=== PATIENT | male | born 1985 | race Caucasian/White ===

== ENCOUNTER 2019-12-23 22:44 | Emergency (ER) | payer MEDICAID, SELFPAY ==
[2019-12-23 22:45] VITALS: BP 149/92; PULSE 102; RESP 15; TEMP 37.4; O2SAT 97; BMI 33.5
[2019-12-23 23:34] VITALS: O2SAT 96
--- NOTE | 2019-12-23 23:59 | RAD_ITS ---
STUDY: X-RAY CHEST REASON FOR EXAM: Male, 34 years old. COUGH AND SOB FOR 5 DAYS. TECHNIQUE: AP and lateral views of the chest. COMPARISON: None. FINDINGS: The lungs are clear and expanded. There is no demonstrated pleural abnormality. Normal size heart. Normal mediastinum and loi. Normal visualized pulmonary arteries. Normal visualized aortic arch and descending thoracic aorta. Normal visualized thoracic spine. Normal visualized ribs, clavicles, and shoulders. There is no demonstrated abnormality of the visualized soft tissue structures of the upper abdomen. RAD/Chest PA and Lateral IMPRESSION: Normal x-ray examination of the chest. Electronically Signed: Keila Page, at 0:55 EDT Tel , Service support ,
[2019-12-24] MEDS: predniSONE 20 MG Tablet 40 MG PO (00:15)
[2019-12-24] MEDS: Ipratropium/Albuterol Sulfate 3 ML AMPUL.NEB INHALATION (00:40)
[2019-12-24 00:42] VITALS: PULSE 99; RESP 18
--- NOTE | 2019-12-24 01:12 | ED.VISSUMM ---
- ER Visit Summary Date of Service: 12/24/19 Chief Complaint: Cough and shortness of breath History of Present Illness: The patient is a 34 M with no primary care physician. Reports he has a cough began 5 days ago. Is productive yellow sputum without blood. He denies any sick contacts. States that he smokes a pack per day. He is had severe shortness of breath and has been wheezing. He does not have an inhaler currently, but is used 1 in the past. He denies any fever or chills. He reports he has a sore throat from coughing only. Physical Examination: Vitals: Stable. Afebrile. General: Well-nourished and well-developed. Head: Normocephalic atraumatic. Neck: Supple, no lymphadenopathy. No JVD. Nontender. Cardiovascular: Regular rate and rhythm. No murmurs. Respiratory: No respiratory distress. Mild wheezing bilaterally with decreased air movement. Abdominal: Soft, nontender, nondistended, normal bowel sounds. No guarding, rebound, or peritoneal signs. Back: Nontender. Extremities: Nontender, no edema. Skin: Normal color, no rash. Neurologic: Alert and oriented ?3. Cranial nerves II through XII are intact. Normal strength and sensation. Psych: Normal affect. Test Results: Clinical Impression(s) from Imaging Studies Chest X-Ray 12/23/19 23:59 IMPRESSION: Normal x-ray examination of the chest. Electronically Signed: Keila Page, at 0:55 EDT Tel , Service support , Emergency Department Course and Treatment: Patient refused a COVID-19 test. He was given albuterol Atrovent aerosol with significant relief. He was given Zithromax and prednisone p.o. Treatment Plan: Patient will be discharged and treated as a COPD exacerbation. He is given a prescription for an albuterol MDI, Zithromax, and prednisone. Follow-up Dr. Ramos in 3 to 5 days if not improving. Return to the emergency department for any worsening symptoms. Disposition: To home in improved and stable condition. Impression: 1. URI with bronchospasm. 2. Tobacco abuse. This note was generated with [employer] software. It may contain incorrect words, spelling, and punctuation that were not noted in review of the chart prior to signing ED Disposition - Plan for ED Patient: Disposition: Home or Assisted Living Instructions: ED Upper Resp Infec Abx Tx Prescriptions: Prednisone [Deltasone] 40 mg PO DAILY #10 tab Prescription Printed Albuterol Inhaler [Ventolin Hfa] 2 puff INHALATION Q4H PRN PRN #1 inhaler PRN Reason: Wheezing Prescription Printed Azithromycin [Zithromax] 250 mg PO DAILY #4 tab Prescription Printed Referrals: Trace Ramos MD [STAFF PHYSICIAN] - 1 Week if not improving
[2019-12-24] MEDS: Azithromycin 250 MG Tablet 500 MG PO (01:43)
[2019-12-24 01:45] VITALS: BP 138/90; PULSE 89; RESP 17; O2SAT 98
== END 2019-12-24 01:45 | disposition home or self-care (01) ==
LOC: ED 12-24 00:15
PROVIDERS: Emergency Provider Emergency Medicine
DX: J06.9 Acute upper respiratory infection, unspecified (principal); J98.01 Acute bronchospasm; F17.200 Nicotine dependence, unspecified, uncomplicated
CPT/HCPCS: 71046; 94640; 99283

== ENCOUNTER 2020-03-24 13:24 | Emergency (ER) | payer MEDICAID, SELFPAY ==
[2020-03-24 13:25] VITALS: BP 153/108; PULSE 118; RESP 19; TEMP 36.7; O2SAT 96; BMI 32.1
--- NOTE | 2020-03-24 14:24 | ED.DCSUM_ITS ---
- ER Visit Summary Date of Service: 03/24/20 Chief Complaint: Lightheadedness History of Present Illness: The patient is a 34 M who presents with lightheadedness that has been constant for the past 11 days. Patient states it is gradually gotten worse. Patient states he feels dizzy and lightheaded like he might pass out. Patient states it is worse with standing. Patient denies any fevers or chills. Patient admits to some intermittent shortness of breath occasionally. Patient denies any cough. Patient thinks he may have Covid but does not want to have a nasal swab done to test for Covid. Physical Examination: Vital signs are stable. Patient is afebrile. Patient is in no acute distress. Oral mucosa is pink and moist. Neck is supple. Trachea is midline. There is no JVD noted. Heart was regular rate and rhythm. Lungs are clear and equal bilaterally. Abdomen is soft. Bowel sounds are normal. There is no tenderness. There is no rebound or guarding noted. Skin is warm dry. Cranial nerves II through XII are intact. There are no focal motor or sensory deficits noted. Extremities are intact. There is no calf tenderness or edema. Emergency Department Course and Treatment: Patient was advised that the nasal swab is the only test for COVID-19. Patient was advised that he does have several symptoms of COVID-19. Patient was advised to quarantine himself. Patient was advised that since it has been 11 days since his symptoms began his symptoms may improve shortly. Patient was instructed return if worse in any way. Patient understood and was agreeable with the plan. All questions were answered. Disposition: Discharge home Impression: Viral illness This note was generated with [employer] dictation software. It may contain incorrect words, spelling, and punctuation that were not noted in review of the chart prior to signing ED Disposition - Plan for ED Patient: Disposition: Home or Assisted Living Diagnosis: Viral illness Instructions: ED Viral Syndrome Referrals: Care Physician,No Primary [Primary Care Provider] - 3-5 Days
[2020-03-24 14:27] VITALS: BP 152/125; PULSE 103; RESP 18; TEMP 36.7; O2SAT 95; O2SAT 98
[2020-03-24 14:30] VITALS: BP 122/90
== END 2020-03-24 14:36 | disposition home or self-care (01) ==
PROVIDERS: Emergency Provider Emergency Medicine
DX: B34.9 Viral infection, unspecified (principal); R42 Dizziness and giddiness; R06.00 Dyspnea, unspecified; F17.200 Nicotine dependence, unspecified, uncomplicated
CPT/HCPCS: 99282

== ENCOUNTER 2021-04-09 09:40 | Emergency (ER) | payer MEDICAID, SELFPAY ==
[2021-04-09 09:42] VITALS: BP 151/94; PULSE 65; RESP 16; TEMP 36.6; O2SAT 100; BMI 34.1
--- NOTE | 2021-04-09 10:02 | EKG12_ITS ---
Test Reason : CP Blood Pressure : / mmHG Vent. Rate : 087 BPM Atrial Rate : 087 BPM P-R Int : 124 ms QRS Dur : 088 ms QT Int : 384 ms P-R-T Axes : 077 069 038 degrees QTc Int : 462 ms Normal sinus rhythm with sinus arrhythmia Normal ECG Confirmed by LISE VIZCAINO, LIZZIE ([id number]), online editor RAVINDER BLACKWOOD ([id number]) on 04/11/2021 11:36:04 AM Referred By: DIANE Confirmed By:LIZZIE LEZAMA MD
--- NOTE | 2021-04-09 10:03 | ED.VIS.CHEST ---
HPI History of Present Illness Chief Complaint: Chest Pain Narrative Narrative: Patient presenting for evaluation secondary to chest pain. Patient reports that he was seated this morning, doing his normal morning routine which involves drinking a cup of coffee smoking cigarettes and surfing the Internet. He reports that he had a sudden onset of very severe sharp chest pain. He states that it was associated with feelings diaphoresis. States that the pain was severe enough that it caused him to roll around on the ground, and began to start to come in waves. States that rolling around on the ground seem to help but it lasted about 15 to 20 minutes and then spontaneously resolved. Patient states that he is never really had any prior similar episodes in the past. Patient does report that he smokes marijuana, but does not use a bong or vape. Last time he did it was last night. Patient denies any underlying history of heart disease or any risk factors of such. He also denies any underlying risk factors for pulmonary embolism. No recent illness such as fever cough nausea or vomiting. Pain has since resolved and the patient states that he feels completely back to baseline. Review of systems otherwise negative. [facility] Medical History Irregular heart beat Home Medications NK 03/24/20 [History Last Taken Unknown] Allergy/AdvReac Type Severity Reaction Status Date / Time No Known Allergies Allergy Verified 03/24/20 13:24 Surgical History no surgical history Social History Smoking Status: Current every day smoker tobacco type: cigarettes ROS ROS ED Constitutional Constitutional ED: Denies fever(s) Eyes Eyes: Denies change in vision ENT ENT ED: Denies rhinorrhea or sore throat Cardiovascular Cardiovascular: Reports as per HPI Respiratory/Chest Respiratory/Chest: Denies cough, dyspnea or dyspnea on exertion Gastrointestinal Gastrointestinal: Denies abdominal pain, nausea or vomiting Genitourinary Genitourinary ED: Denies dysuria Musculoskeletal Musculoskeletal: Denies myalgias or neck pain Integumentary Reports other Details: Diaphoresis Neurologic Neurologic: Denies headache(s), paresthesias or weakness Psychiatric Psychiatric: Denies depression Endocrine Endocrinology: Denies polydipsia or polyuria Hematologic/Lymphatic Hematologic/Lymphatic: Denies easy bleeding or easy bruising Allergic/Immunologic Allergic/Immunologic ED: Denies urticaria EXAM Physical Exam Const Vital Signs: 04/09/21 09:42 04/09/21 09:47 04/09/21 10:02 Temperature 97.9 F Temperature Source Temporal Pulse Rate 65 Respiratory Rate 16 Respiratory Effort Normal Non-Labored Blood Pressure 151/94 H Blood Pressure Mean 113 Pulse Ox 100 Oxygen Delivery Method Room Air Room Air Positive well nourished and well developed General Appearance ED: well developed and NAD HEENT Reports moist mucous membranes normocephalic and atraumatic Eyes EOMs intact bilaterally Neck no lymphadenopathy, supple and no JVD Chest Wall inspection of chest normal and palpation of chest normal Chest Narrative: No evidence of vesicular rash Resp normal respiratory effort and clear to auscultation bilaterally Auscultation: Negative for rales, rhonchi or wheezes Cardio regular rate, regular rhythm, S1 normal heart sound, S2 normal heart sound and no murmurs Peripheral Pulses: radial pulses present and posterior tibial pulses present GI normal to inspection, nondistended, normoactive bowel sounds, soft to palpation and non-tender Extremity normal to inspection Extremity Narrative: Calves are supple no palpable cord General Extremety ED: Negative for edema or tenderness General Extremity: Negative for edema Neuro oriented x3 and no sensory deficits noted Sensorium / Orientation: awake and alert Psych mental status grossly normal Skin no rashes or lesions noted MDM MDM MDM Narrative Medical decision making narrative: Patient presenting for evaluation secondary to chest pain. EKG was found to be unremarkable. Chest x-ray by my personal review as well as radiology is found to be negative. CBC demonstrates some hemoconcentration likely consistent with the patient's smoking history, chemistry was unremarkable high-sensitivity troponin was noted to be negative. Heart score is a maximum 1, patient is chest pain-free, I do not believe that he requires further work-up or treatment. Patient is capital PE RC negative no indication for work-up for pulmonary embolism. Patient was given reassurance his pain seems likely to have been referred GI type pain. Patient was discharged in stable condition. Lab Data Labs: Laboratory Results - last 24 hr 04/09/21 04/09/21 09:50 09:50 WBC 9.8 RBC 5.80 Hgb 18.1 H* Hct 52.3 MCV 90.2 MCH 31.2 MCHC 34.6 RDW Std Deviation 41.6 RDW Coeff of Chirag 12.6 Plt Count 329 MPV 9.0 Immature Gran % (Auto) 0.200 Neut % (Auto) 53.5 Lymph % (Auto) 31.2 [place] % (Auto) 10.6 H Eos % (Auto) 3.9 Baso % (Auto) 0.6 Absolute Neuts (auto) 5.2 Absolute Lymphs (auto) 3.05 Nucleated RBC % 0 Diff Path Review May foll Sodium 139 Potassium 4.0 Chloride 107 Carbon Dioxide 27.0 Anion Gap 5 BUN 13 Creatinine 1.17 Estim Creat Clear Calc 90.99 Est GFR (MDRD) Af Amer 91 Est GFR (MDRD) Non-Af 75 BUN/Creatinine Ratio 11.1 Glucose 112 H Calcium 9.4 Troponin I High Sens < 3 L Radiography Diagnostic Testing: Clinical Impression(s) from Imaging Studies Chest X-Ray 04/09/21 10:25 IMPRESSION: Normal x-ray examination of the chest. Electronically Signed: Wilber Fonseca MD at 10:45 EST , Service support , EKG Initial EKG: Attestation: I personally reviewed and interpreted this EKG as follows: (Sinus rhythm of 87 with some sinus arrhythmia, isoelectric ST segments normal T waves no evidence of acute ischemia or arrhythmia normal intervals) Discharge Plan Triage Chief Complaint: Chest Pain ED Provider: Dandy Villanueva Dx/Rx/DC Orders Clinical Impression: Chest pain Instructions: ED Chest Pain, Noncardiac Prescriptions: No Action NK RF: 0 Primary Care Provider: Care Physician,No Primary Referrals: Care Physician,No Primary [Primary Care Provider] - Activity Restrictions/Additional Instructions: Follow-up with your primary care physician as needed Disposition Disposition: Home, Self Care
[2021-04-09 10:19] LABS: Absolute Lymphocyte Count 3.05 X10^3/uL (0.83-4.51); Absolute Neutrophil Count 5.2 X10^3/uL (2.0-7.7); Basophil# 0.06 X10^3/uL; Basophil% 0.6 % (0-1); Eosinophil# 0.38 X10^3/uL; Eosinophils% 3.9 % (0-5); Hematocrit 52.3 % (40-54); Lymphocyte # 3.05 X10^3/ul (0.83-4.51); Lymphocyte % 31.2 % (19-41); Mean Corp Hgb Conc 34.6 g/dL (32-36); Mean Corpuscular Hgb 31.2 pg (27.0-32.0); Mean Corpuscular Volume 90.2 fL (80-94); Monocyte# 1.04 X10^3/uL; Monocyte% 10.6 % (0-10); NRBC Flagged by Analyzer 0 % (0-5); Neutrophil # 5.22 X10^3/uL (2.7-7.7); Neutrophil % 53.5 % (47-70); Platelet Count 329 K/mm3 (150-450); RBC Distribution Width CV 12.6 % (11.6-14.6); RBC Distribution Width SD 41.6 fl (35.1-43.9); White Blood Count 9.8 K/mm3 (4.4-11.0)
--- NOTE | 2021-04-09 10:25 | RAD_ITS ---
STUDY: X-RAY CHEST REASON FOR EXAM: Male, 35 years old. Chest pain TECHNIQUE: PA and lateral views of the chest. COMPARISON: Comparison is made with prior study dated 12/24/2019. FINDINGS: EKG electrodes are seen. The lungs are clear and expanded. There is no demonstrated pleural abnormality. Normal size heart. Normal mediastinum and loi. Normal visualized pulmonary arteries. Normal visualized aortic arch and descending thoracic aorta. Normal visualized thoracic spine. Normal visualized ribs, clavicles, and shoulders. There is no demonstrated abnormality of the visualized soft tissue structures of the upper abdomen. RAD/Chest PA and Lateral IMPRESSION: Normal x-ray examination of the chest. Electronically Signed: Wilber Fonseca MD at 10:45 EST , Service support ,
[2021-04-09 10:27] LABS: Hemoglobin 18.1 g/dL (13.0-16.5)
[2021-04-09 10:42] LABS: Anion Gap 5 (5-15); BUN 13 mg/dL (7-18); BUN/Creat Ratio 11.1 RATIO (10-20); Calcium,Total 9.4 mg/dL (8.5-10.1); Chloride 107 mmol/L (98-107); Creatinine, Serum 1.17 mg/dL (0.70-1.30); EST Glomerular Filtration Rate 75 mL/min (>60); Est Glom Filt Rate - Afr Amer 91 mL/min (>60); Estimated Creatinine Clearance 90.99 ml/min; Glucose 112 mg/dL (74-106); Sodium Level 139 mmol/L (136-145); Troponin-I HS < 3 pg/mL (3.0-78.0)
--- NOTE | 2021-04-09 10:59 | ED.RN ---
PT PULLED IV OUT. BLOOD ALL OVER FLOOR. PT LAUGHING
[2021-04-09 11:33] VITALS: BP 115/79; PULSE 84; RESP 16; O2SAT 99
--- NOTE | 2021-04-09 11:34 | ED.RN ---
THIS NURSE REVIEWED D/C INSTRUCTIONS WITH PT. PT VERBALIZED UNDERSTANDING OF INSTRUCTIONS. PT D/C OWN IV. PT DENIES FURTHER NEEDS OR QUESTIONS AT THIS TIME. PT AMBULATES FROM ROOM ON OWN WITHOUT ASSISTANCE FROM STAFF
[2021-04-10 13:48] LABS: Pathologist Review Reviewed
== END 2021-04-09 11:35 | disposition home or self-care (01) ==
PROVIDERS: Emergency Provider Emergency Medicine
DX: R07.9 Chest pain, unspecified (principal); R61 Generalized hyperhidrosis; F17.210 Nicotine dependence, cigarettes, uncomplicated; F12.90 Cannabis use, unspecified, uncomplicated
CPT/HCPCS: 71046; 80048; 84484; 85025; 93005; 99284; A4216

== ENCOUNTER 2021-04-18 17:24 | Emergency (ER) | payer MEDICAID, SELFPAY ==
[2021-04-18 17:25] VITALS: BP 160/72; PULSE 109; RESP 16; TEMP 36.7; O2SAT 95; BMI 33.0
--- NOTE | 2021-04-18 18:17 | EDS_ITS ---
HPI History of Present Illness Chief Complaint: Constipation Informant: patient Onset/Context/Timing Onset: Days Context: Gradual Onset Current Severity: Mild Maximum Severity: Moderate Narrative Narrative: Patient presents with lower abdominal pain and constipation for the past 3 days. Patient states he is never had problems with constipation previously and usually goes every day. He tried an enema yesterday along with some oral laxative pills. Last night he became dizzy. He thought it might be secondary to the medication but did note it was 12 hours after he had taken it. He went to urgent care today where his temperature was 100 and his heart rate was elevated. He was sent to the emergency room. No known history of diverticu litis. [facility] Medical History (Updated 04/18/21 @ 21:[address] Riri Echevarria MD) Irregular heart beat Home Medications amoxicillin-pot clavulanate [Augmentin] 1 tab PO BID #20 tab 04/18/21 [Rx Last Taken Unknown] Allergy/AdvReac Type Severity Reaction Status Date / Time guaifenesin [From Robitussin] Allergy Hives Verified 04/18/21 18:22 Surgical History (Updated 04/18/21 @ 18:[address] Riri Echevarria MD) History of ankle surgery Social History Smoking Status: Current every day smoker tobacco type: cigarettes ROS ROS ED Constitutional Constitutional ED: Reports fever(s); Denies chills Eyes Eyes: Denies change in vision ENT ENT ED: Denies sore throat Cardiovascular Cardiovascular: Denies chest pain Respiratory/Chest Respiratory/Chest: Denies cough or dyspnea Gastrointestinal Gastrointestinal: Reports abdominal pain and constipation; Denies diarrhea, nausea or vomiting Genitourinary Genitourinary ED: Denies dysuria Musculoskeletal Musculoskeletal: Denies back pain or neck pain Integumentary Denies rash Neurologic Neurologic: Denies headache(s) or weakness Allergic/Immunologic Allergic/Immunologic ED: Denies urticaria EXAM Physical Exam Const Vital Signs: 04/18/21 17:25 04/18/21 18:22 Temperature 98.0 F Temperature Source Oral Pulse Rate 109 H Respiratory Rate 16 16 Blood Pressure 160/72 H Blood Pressure Mean 101 Pulse Ox 95 Oxygen Delivery Method Room Air Positive well nourished and well developed General Appearance ED: well developed HEENT Reports moist mucous membranes Eyes PERRL and EOMs intact bilaterally Neck supple Chest Wall inspection of chest normal and palpation of chest normal Resp normal respiratory effort and clear to auscultation bilaterally Cardio regular rate and regular rhythm GI Auscultation: hypoactive bowel sounds Palpation: soft and tender suprapubic Extremity normal to inspection Neuro oriented x3 Sensorium / Orientation: alert Psych mental status grossly normal Skin no rashes or lesions noted MDM MDM MDM Narrative Medical decision making narrative: Lab work and CT abdomen pelvis obtained. Lab Data Attestation: I reviewed the patient's lab results. Labs: Laboratory Results - last 24 hr 04/18/21 04/18/21 18:30 18:30 WBC 13.6 H RBC 5.76 Hgb 17.9 H Hct 51.7 MCV 89.8 MCH 31.1 MCHC 34.6 RDW Std Deviation 40.4 RDW Coeff of Chirag 12.2 Plt Count 357 MPV 9.1 Immature Gran % (Auto) 0.400 Neut % (Auto) 73.0 H Lymph % (Auto) 16.7 L [place] % (Auto) 8.1 Eos % (Auto) 1.3 Baso % (Auto) 0.5 Absolute Neuts (auto) 10.0 H Absolute Lymphs (auto) 2.28 Nucleated RBC % 0 Sodium 137 Potassium 3.8 Chloride 106 Carbon Dioxide 25.0 Anion Gap 6 BUN 14 Creatinine 1.16 Estim Creat Clear Calc 91.77 Est GFR (MDRD) Af Amer 92 Est GFR (MDRD) Non-Af 76 BUN/Creatinine Ratio 12.1 Glucose 103 Calcium 9.4 Radiography Diagnostic Testing: Clinical Impression(s) from Imaging Studies Abdomen/Pelvis CT 04/18/21 18:17 Treatment and Re-Evaluation Comments:: Lab work does reveal elevated white count at 13.6 with left shift. Chemistry studies normal. CT scan reveals acute diverticulitis of the ascending colon. There is no evidence to suggest abscess formation. Test results discussed with patient. He will be started on Augmentin. He will be given a dose of morphine here for pain prior to discharge. Discharge Plan Triage Chief Complaint: Constipation ED Provider: Riri Echevarria Dx/Rx/DC Orders Clinical Impression: Diverticulitis Instructions: ED Diverticulitis Prescriptions: New amoxicillin-pot clavulanate [Augmentin] 875-125 mg tablet 1 tab PO BID Qty: 20 RF: 0 Primary Care Provider: Care Physician,No Primary Referrals: Trace Ramos MD [STAFF PHYSICIAN] - 1-2 Weeks Care Physician,No Primary [Primary Care Provider] - Disposition Disposition: Home, Self Care
--- NOTE | 2021-04-18 18:17 | CT_ITS ---
STUDY: CT Abdomen And Pelvis W/ Contrast Injection 04/18/2021 8:33 PM REASON FOR EXAM: Male, 35 years old. Technologist Notes Other, ABDOMEN PAIN,CRAMPING AND BLOATING WITH CONSTIPATION X 3 DAYS abd pain, constipation -- IV PO Contrast TECHNIQUE: Transaxial images were obtained oral contrast, and Oral IV Gastrografin and amp; 100mL Isovue-300 intravenous contrast. Individualized dose optimization techniques were used for this CT. COMPARISON: None. FINDINGS: The visualized lung bases are unremarkable. The visualized portions of the heart are within normal limits. Normal liver. Normal gallbladder and extrahepatic biliary system. Normal spleen. Normal pancreas. Normal bilateral adrenal glands. No acute findings of the right kidney. No acute findings of the left kidney. Normal visualized stomach. Normal small intestine. There is diverticulosis, with thickening of the colon wall, and pericolonic inflammation changes consistent with acute diverticulitis. The appendix is visualized and appears normal. There are no acute findings of the abdominal aorta. Normal inferior vena cava. Subcentimeter mesenteric lymph nodes. Normal urinary bladder. There are prostatic calcifications. There is an umbilical hernia containing fat. Normal osseous structures. IMPRESSION: (NOT LISTED IN ORDER OF SIGNIFICANCE) Acute diverticulitis of the ascending colon. There is no evidence to suggest abscess formation. Other findings as above. Electronically Signed: Amilcar Silveira MD at 20:35 EST , Service support , CT/Abdomen/Pelvis WITH Contrast
[2021-04-18 18:22] VITALS: RESP 16
[2021-04-18 18:43] LABS: Absolute Lymphocyte Count 2.28 X10^3/uL (0.83-4.51); Basophil# 0.07 X10^3/uL; Basophil% 0.5 % (0-1); Eosinophil# 0.18 X10^3/uL; Eosinophils% 1.3 % (0-5); Hematocrit 51.7 % (40-54); Hemoglobin 17.9 g/dL (13.0-16.5); Lymphocyte # 2.28 X10^3/ul (0.83-4.51); Lymphocyte % 16.7 % (19-41); Mean Corp Hgb Conc 34.6 g/dL (32-36); Mean Corpuscular Hgb 31.1 pg (27.0-32.0); Mean Corpuscular Volume 89.8 fL (80-94); Mean Platelet Vol. 9.1 fl (6.2-12.0); Monocyte# 1.11 X10^3/uL; Monocyte% 8.1 % (0-10); NRBC Flagged by Analyzer 0 % (0-5); Neutrophil # 9.95 X10^3/uL (2.7-7.7); Platelet Count 357 K/mm3 (150-450); RBC Distribution Width CV 12.2 % (11.6-14.6); RBC Distribution Width SD 40.4 fl (35.1-43.9); Red Blood Count 5.76 M/mm3 (4.6-6.2); White Blood Count 13.6 K/mm3 (4.4-11.0)
[2021-04-18 18:58] LABS: Anion Gap 6 (5-15); BUN 14 mg/dL (7-18); BUN/Creat Ratio 12.1 RATIO (10-20); Calcium,Total 9.4 mg/dL (8.5-10.1); Chloride 106 mmol/L (98-107); Creatinine, Serum 1.16 mg/dL (0.70-1.30); EST Glomerular Filtration Rate 76 mL/min (>60); Est Glom Filt Rate - Afr Amer 92 mL/min (>60); Estimated Creatinine Clearance 91.77 ml/min; Glucose 103 mg/dL (74-106); Potassium 3.8 mmol/L (3.5-5.1); Sodium Level 137 mmol/L (136-145)
[2021-04-18] MEDS: 0.9% Normal Saline 1,000 ML 1000 ML IV (19:30)
[2021-04-18] MEDS: Morphine 4 MG/ML Syringe IV (21:45)
[2021-04-18] MEDS: Amox/Clavulanate 875 MG Tablet PO (21:46)
== END 2021-04-18 21:51 | disposition home or self-care (01) ==
PROVIDERS: Emergency Provider Emergency Medicine
DX: K57.92 Diverticulitis of intestine, part unspecified, without perforation or abscess without bleeding (principal); F17.210 Nicotine dependence, cigarettes, uncomplicated
CPT/HCPCS: 74177; 80048; 85025; 96361; 96374; 99284; J7030; Q9967; A4216

== ENCOUNTER 2021-05-02 09:03 | Emergency (ER) | payer MEDICAID, SELFPAY ==
[2021-05-02 09:04] VITALS: BP 123/82; PULSE 97; RESP 20; TEMP 35.8; O2SAT 97; BMI 31.5
--- NOTE | 2021-05-02 09:06 | RAD_ITS ---
STUDY: X-RAY - RIGHT WRIST REASON FOR EXAM: Male, 35 years old. FELL LAST NIGHT. WAS HOLDING HIS DOG''S LEASH WHILE RUNNING UP THE STAIRS. TRIED TO CATCH HIMSELF WHEN HE FELL FORWARD AND PUNCHED THE GROUND TECHNIQUE: 3 view(s) of the wrist were obtained. COMPARISON: None. FINDINGS: Normal visualized distal radius and ulna. Normal radiocarpal articulation. Normal distal radioulnar articulation. Normal carpal bones. Normal carpal articulations. Normal carpometacarpal articulation of the thumb. Normal second through fifth carpometacarpal articulations. Normal visualized metacarpal bones. There is non-specific soft tissue swelling. RAD/Wrist min 3 Views IMPRESSION: Soft tissue swelling. No demonstrated fracture or malalignment. Electronically Signed: Robbie Emmanuel MD ([place]) at 9:32 EST , Service support ,
--- NOTE | 2021-05-02 09:06 | RAD_ITS ---
STUDY: X-RAY - RIGHT HAND REASON FOR EXAM: Male, 35 years old. FELL LAST NIGHT. WAS HOLDING HIS DOG''S LEASH WHILE RUNNING UP THE STAIRS. TRIED TO CATCH HIMSELF WHEN HE FELL FORWARD AND PUNCHED THE GROUND TECHNIQUE: 3 view(s) of the hand. COMPARISON: None. FINDINGS: Normal radiocarpal articulation. Normal distal radioulnar joint. Normal visualized carpal bones. Normal carpal articulations Normal carpometacarpal articulation of the thumb. Normal second through fifth carpometacarpal joints. Normal metacarpi. Normal metacarpophalangeal joint of the thumb. Normal interphalangeal joint of the thumb. Normal proximal and distal phalanges of the thumb. Normal metacarpophalangeal joints of the second through fifth fingers. Normal proximal and distal interphalangeal joints of the second through fifth fingers. Normal phalanges of the second through fifth fingers. Nonspecific soft tissue swelling. RAD/Hand Min 3 Views IMPRESSION: Nonspecific soft tissue swelling without demonstrated fracture. Electronically Signed: Robbie Emmanuel MD ([place]) at 9:31 EST , Service support ,
--- NOTE | 2021-05-02 10:19 | EDS_ITS ---
HPI History of Present Illness Chief Complaint: Upper Extremity Injury Narrative Narrative: Patient presenting for evaluation secondary to right hand injury. Patient reports that he was going upstairs last night and suffered a hyper flexion injury when he fell on the stairs of his right hand. He has pain and swelling in the hand of the wrist, he is right-hand dominant. Pain is moderate worse with palpation and movement. He denies hitting his head or loss of consciousness. Review of systems otherwise negative. PFSH PFS Medical History Diverticulitis Irregular heart beat Home Medications amoxicillin-pot clavulanate [Augmentin] 1 tab PO BID #20 tab 04/18/21 [Rx Last Taken Unknown] Allergy/AdvReac Type Severity Reaction Status Date / Time guaifenesin [From Robitussin] Allergy Hives Verified 04/18/21 18:22 Surgical History History of ankle surgery Social History Smoking Status: Current every day smoker tobacco type: cigarettes ROS ROS ED Constitutional Constitutional ED: Denies fever(s) Respiratory/Chest Respiratory/Chest: Denies cough or dyspnea Musculoskeletal Musculoskeletal: Reports other Details: Right hand pain Integumentary Denies Abrasions Neurologic Neurologic: Denies paresthesias or weakness Hematologic/Lymphatic Hematologic/Lymphatic: Denies easy bleeding or easy bruising EXAM Physical Exam Const Vital Signs: 05/02/21 09:04 Temperature 96.5 F L Temperature Source Temporal Pulse Rate 97 Respiratory Rate 20 H Blood Pressure 123/82 H Blood Pressure Mean 95 Pulse Ox 97 Oxygen Delivery Method Room Air Positive well nourished and well developed General Appearance ED: well developed Eyes EOMs intact bilaterally Neck full ROM Resp normal respiratory effort Cardio regular rate and regular rhythm Cardio Narrative: 2+ radial pulses bilaterally symmetric Extremity Extremity Narrative: Examination of patient's right hand shows tenderness palpation over the fourth metacarpal with some bruising and swelling in that area normal range of motion of the fingers normal range of motion of the wrist no focal tenderness over the anatomical snuffbox. Neuro oriented x3 Sensorium / Orientation: alert Skin Rashes: no rashes MDM MDM MDM Narrative Medical decision making narrative: Patient presented secondary to a hand injury. By my personal review the patient has a nondisplaced fourth metacarpal fracture at his area of greatest tenderness to palpation. Patient was placed in a ulnar gutter splint as noted in the procedure note. Patient will follow up with mohinder sauceda. Radiography Diagnostic Testing: Clinical Impression(s) from Imaging Studies Hand X-Ray 05/02/21 09:06 IMPRESSION: Nonspecific soft tissue swelling without demonstrated fracture. Electronically Signed: Robbie Emmanuel MD ([place]) at 9:31 EST , Service support , Wrist X-Ray 05/02/21 09:06 IMPRESSION: Soft tissue swelling. No demonstrated fracture or malalignment. Electronically Signed: Robbie Emmanuel MD ([place]) at 9:32 EST , Service support , Procedures Other Procedures Procedure(s): Cotton stockinette was placed over the patient's arm. Cotton padding was wrapped around the ring and small digits and up the hand and the forearm. 4 inch Ortho-Glass was trimmed to fit, was molded, and was secured in place with a Aj wrap. Patient had good capillary refill following splint placement. Discharge Plan Triage Chief Complaint: Upper Extremity Injury ED Provider: Dandy Villanueva Dx/Rx/DC Orders Clinical Impression: Boxer's fracture Instructions: ED Boxer Fracture Prescriptions: No Action amoxicillin-pot clavulanate [Augmentin] 875-125 mg tablet 1 tab PO BID Qty: 20 RF: 0 Primary Care Provider: Care Physician,No Primary Referrals: Benny Lawton DO [STAFF PHYSICIAN] - 1-2 Weeks Care Physician,No Primary [Primary Care Provider] - Disposition Disposition: Home, Self Care
== END 2021-05-02 10:39 | disposition home or self-care (01) ==
LOC: ED 10:34
PROVIDERS: Emergency Provider Emergency Medicine
DX: S62.304A Unspecified fracture of fourth metacarpal bone, right hand, initial encounter for closed fracture (principal); W10.9XXA Fall (on) (from) unspecified stairs and steps, initial encounter; Y93.9 Activity, unspecified; Y92.9 Unspecified place or not applicable; F17.210 Nicotine dependence, cigarettes, uncomplicated
CPT/HCPCS: 29125; 73110; 73130; 99282

== ENCOUNTER 2021-06-17 22:08 | Emergency (ER) | payer MEDICAID, SELFPAY ==
[2021-06-17 22:08] VITALS: BP 129/89; PULSE 85; RESP 25; O2SAT 91
[2021-06-17 22:09] VITALS: BP 137/96; PULSE 90; RESP 15; TEMP 36.2; O2SAT 98; BMI 31.1
--- NOTE | 2021-06-17 22:31 | EX.ED.VIS.UR ---
HPI HPI - URI History of Present Illness Chief Complaint: Cough Informant: patient Onset/Context/Timing Onset: Days (3-4) Context: Gradual Onset Timing: Continuous Quality: malaised, cough, fevers/chills Current Severity: Moderate Maximum Severity: Moderate Associated Symptoms Associated Symptoms: Positive for Nausea, Shortness of Breath and Nonproductive cough; Negative for Nasal Congestion, Headache, Sinus Pressure, Vomiting, Diarrhea, Chest Pain and Hemoptysis Narrative Narrative: Patient with respiratory infection symptoms for the past 3 or 4 days, now developing shortness of breath today with wheezing. Had a history of asthma when I was a child. States today he started wheezing, 2 days ago he went to urgent care and was put on an albuterol inhaler and prednisone for unknown reasons. They did not run any testing. He is unvaccinated against Covid. No known contact with anyone that has been ill that he knows of. 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 He is healthy otherwise. ROS ROS ED Constitutional Constitutional ED: Reports body ache(s), chills, fatigue, fever(s) and malaise; Denies headache(s) Eyes Eyes: Denies change in vision or diplopia ENT ENT ED: Denies rhinorrhea or sore throat Cardiovascular Cardiovascular: Denies chest pain or palpitations Respiratory/Chest Respiratory/Chest: Reports cough, dyspnea and wheezing Gastrointestinal Gastrointestinal: Reports nausea; Denies abdominal pain, diarrhea or vomiting Genitourinary Genitourinary ED: Denies dysuria or hematuria Musculoskeletal Musculoskeletal: Denies back pain or neck pain Integumentary Denies abscess or rash Neurologic Neurologic: Denies headache(s), paresthesias or weakness Psychiatric Psychiatric: Denies anxiety or suicidal thoughts [facility] Medical History Diverticulitis Irregular heart beat Mild intermittent asthma Home Medications amoxicillin-pot clavulanate [Augmentin] 1 tab PO BID #20 tab 04/18/21 [Rx Last Taken Unknown] Allergy/AdvReac Type Severity Reaction Status Date / Time guaifenesin [From Robitussin] Allergy Hives Verified 06/17/21 22:09 Surgical History History of ankle surgery Social History Smoking Status: Current every day smoker tobacco type: cigarettes EXAM Physical Exam Const Vital Signs: 06/17/21 22:08 06/17/21 22:09 06/17/21 22:38 Temperature 97.2 F L Temperature Source Temporal Pulse Rate 85 90 97 Respiratory Rate 25 H 15 18 Respiratory Effort Respiratory Depth Respiratory Pattern Normal Blood Pressure 129/89 H 137/96 H Blood Pressure Mean 102 109 Pulse Ox 91 98 Oxygen Delivery Method Room Air Room Air 06/17/21 22:59 Temperature Temperature Source Pulse Rate Respiratory Rate Respiratory Effort Short of Breath Respiratory Depth Normal Respiratory Pattern Normal Blood Pressure Blood Pressure Mean Pulse Ox Oxygen Delivery Method Room Air Positive well nourished and well developed Constitutional Narrative: Malaised-appearing, no distress General Appearance ED: well developed and NAD HEENT Reports moist mucous membranes normocephalic and atraumatic Eyes PERRL and EOMs intact bilaterally Neck full ROM and supple Resp normal respiratory effort, no retractions and no use of accessory muscles Effort and Inspection: able to speak in complete sentences Auscultation: wheezes expiratory wheezes and throughout; Negative for crackles, rales or rhonchi Cardio regular rate, regular rhythm and no murmurs Rate: Negative for tachycardic GI non-tender and non-distended Auscultation: normoactive bowel sounds Palpation: soft Back/Spine no CVA tenderness General Back: other FROM Extremity normal to inspection and no calf tenderness General Extremety ED: Negative for edema, pulses abnormal or tenderness General Extremity: Negative for edema or pulses abnormal Neuro oriented x3, CN's II-XII intact bilaterally and no sensory deficits noted Sensorium / Orientation: awake and alert Motor Exam: strength 5/5 throughout Skin no rashes or lesions noted and no wounds MDM MDM MDM Narrative Medical decision making narrative: Patient was offered Covid, flu testing with chest x-ray. He does not want the latter. He prefers to have breathing treatment which was given. He is already on prednisone for the wheezing, since it is not helping he probably just has wheezy bronchitis from a non-Covid viral infection. Vital signs including oxygenation are normal. His rapid Covid is negative, we sent a PCR and he was given appropriate discharge instructions to isolate and stay home which she plans on doing anyway. We also discussed appropriate albuterol treatment I do not think he is using the inhaler properly. Discharge Plan Triage Chief Complaint: Cough ED Provider: Peter Rico Dx/Rx/DC Orders Clinical Impression: Acute wheezy bronchitis Instructions: ED Bronchitis with Wheezing (Adult) Prescriptions: No Action amoxicillin-pot clavulanate [Augmentin] 875-125 mg tablet 1 tab PO BID Qty: 20 RF: 0 Primary Care Provider: Navid Angela Referrals: Navid Angela MD [NON-STAFF] - 1-2 Weeks (if not improving) Disposition Disposition: Home, Self Care
[2021-06-17 22:38] VITALS: PULSE 97; RESP 18
[2021-06-17] MEDS: Ipratropium/Albuterol Sulfate 3 ML AMPUL.NEB INHALATION (22:38)
[2021-06-17 22:59] VITALS: O2SAT 91
[2021-06-17 23:22] VITALS: BP 139/85; PULSE 93; RESP 18; TEMP 36.6; O2SAT 91
--- NOTE | 2021-06-18 11:26 | ED.RN ---
CALLED AND LEFT MESSAGE FOR PRESCRIPTION AT [facility].
== END 2021-06-17 23:36 | disposition home or self-care (01) ==
LOC: ED 22:39
PROVIDERS: Emergency Provider Emergency Medicine; PCP Family Medicine; Visit Provider Emergency Medicine
DX: J20.9 Acute bronchitis, unspecified (principal); R19.7 Diarrhea, unspecified; Z20.822 Contact with and (suspected) exposure to COVID-19; F17.210 Nicotine dependence, cigarettes, uncomplicated; J45.20 Mild intermittent asthma, uncomplicated
CPT/HCPCS: 87426; 87635; 94640; 99282; U0003; U0005

== ENCOUNTER 2022-10-28 18:03 | Emergency (ER) | payer MEDICAID, SELFPAY ==
[2022-10-28 18:03] VITALS: BP 138/95; PULSE 110; RESP 16; TEMP 36.6; O2SAT 99; BMI 31.5
[2022-10-28] MEDS: Diphth,Pertuss(Acell),Tet Vac 0.5 ML Vial IM (18:41)
--- NOTE | 2022-10-28 18:46 | EDS_ITS ---
HPI History of Present Illness Chief Complaint: Upper Extremity Injury Narrative Narrative: 37-year-old male presenting with injury to left distal ring finger. He has a laceration on the tip of it. Has been weeping overnight. He states he smashed it between a truck and a piece of wood while loading into the back of his truck. He is having problems bending his finger. He states he thought it would stop bleeding but is not. He states that he did not come yesterday because he was told by his friends that the ER would amputate his finger. Last tetanus unknown. [id number]. [facility] Medical History Diverticulitis Irregular heart beat Mild intermittent asthma Home Medications amoxicillin 875 mg-potassium clavulanate 125 mg tablet (Augmentin) 1 tab PO BID #20 tabs 04/18/21 [Rx Last Taken Unknown] cefuroxime axetil 500 mg tablet 500 mg PO BID #14 tabs 10/28/22 [Rx Last Taken Unknown] Allergy/AdvReac Type Severity Reaction Status Date / Time guaifenesin [From Robitussin] Allergy Hives Verified 10/28/22 18:03 Surgical History History of ankle surgery Social History Smoking Status: Current every day smoker tobacco type: cigarettes ROS ROS ED Constitutional Constitutional ED: Denies chills, fever(s) or sweats Eyes Eyes: Denies blurry vision or change in vision ENT ENT ED: Denies ear pain or sore throat Cardiovascular Cardiovascular: Denies chest pain, palpitations or racing heartbeat Respiratory/Chest Respiratory/Chest: Denies cough, dyspnea or sputum Gastrointestinal Gastrointestinal: Denies abdominal pain, constipation, diarrhea, nausea or vomiting Genitourinary Genitourinary ED: Denies dysuria, hematuria or urinary frequency Musculoskeletal Musculoskeletal: Denies arthralgias, myalgias or neck pain Integumentary Reports other Details: Laceration left ring finger ; Denies abscess, Abrasions or rash Neurologic Neurologic: Denies headache(s), paresthesias or weakness Psychiatric Psychiatric: Denies anxiety, depression, suicidal ideation or suicidal thoughts Endocrine Endocrinology: Denies polydipsia or polyuria EXAM Physical Exam Const Vital Signs: 10/28/22 18:03 Temperature 97.9 F Temperature Source Temporal Pulse Rate 110 H Respiratory Rate 16 Blood Pressure 138/95 H Blood Pressure Mean 109 Pulse Ox 99 Oxygen Delivery Method Room Air Positive well nourished General Appearance ED: NAD HEENT Reports moist mucous membranes Eyes PERRL and EOMs intact bilaterally Resp normal respiratory effort Cardio regular rate and regular rhythm Extremity Extremity Narrative: Tenderness to palpation and slight edema to the left distal ring finger. There is a laceration about 2 cm on the tip of the finger. There is mild weeping. No subungual hematoma. Patient has full range of motion of the finger. Neurovascular intact. Neuro oriented x3 and CN's II-XII intact bilaterally Sensorium / Orientation: alert Psych mental status grossly normal MDM MDM MDM Narrative Medical decision making narrative: Patient presenting with small laceration to the distal ring finger. Last tetanus was unknown so we updated it today. His hands are very dirty and he states that he works outside so I will place him on antibiotics to keep it from any infected. The wound was cleaned and dressed. Patient refuses x-ray and states he does not think his finger is broken. He just wanted to have his laceration evaluated. I did developmental training counselor him that since he had laceration was yesterday I cannot suture it but to keep it clean and dry and monitor for signs of infection. He was understanding of this. Discharged stable condition. Impression: 1. 2 cm left ring finger laceration 2. Left ring finger contusion 3. Tetanus update Discharge Plan Triage Chief Complaint: Upper Extremity Injury ED Provider: Jordy Alexander Dx/Rx/DC Orders Instructions: ED Laceration, Old: Not Sutured Prescriptions: New cefuroxime axetil 500 mg tablet 500 mg PO BID Qty: 14 0RF No Action amoxicillin-pot clavulanate [Augmentin] 875-125 mg tablet 1 tab PO BID Qty: 20 0RF Primary Care Provider: Care Physician,No Primary Referrals: Care Physician,No Primary [Primary Care Provider] - Wound,Center [Non-Staff] - 3-5 Days Disposition Disposition: Home, Self Care
== END 2022-10-28 19:01 | disposition home or self-care (01) ==
LOC: ED 18:36
PROVIDERS: Emergency Provider Student in an Organized Health Care Education/Training Program; Visit Provider Student in an Organized Health Care Education/Training Program
DX: S61.215A Laceration without foreign body of left ring finger without damage to nail, initial encounter (principal); S60.042A Contusion of left ring finger without damage to nail, initial encounter; F17.210 Nicotine dependence, cigarettes, uncomplicated; Z23 Encounter for immunization; W23.2XXA Caught, crushed, jammed or pinched between a moving and stationary object, initial encounter; Y93.89 Activity, other specified; Y92.812 Truck as the place of occurrence of the external cause
CPT/HCPCS: 90471; 90715; 99283

== ENCOUNTER 2022-11-21 03:49 | Emergency (ER) | payer MEDICAID, SELFPAY ==
[2022-11-21 03:50] VITALS: BP 168/90; PULSE 110; RESP 18; TEMP 35.9; O2SAT 98; BMI 33.2
[2022-11-21] MEDS: Lidocaine 1% (20 ml mdv) 20 ML Vial INFILT (05:19)
--- NOTE | 2022-11-21 05:20 | EX.ED.UPPERE ---
HPI History of Present Illness Chief Complaint: Laceration Informant: patient Narrative Narrative: [id number] male had a chainsaw related accidental injury to his left index finger almost 24 hours ago. He initially was seen at the [facility] ER, he states they gave him an injection of pain medication, bandaged him up, and transferred him to [facility] where his significant other drove him, and they were expecting to see an orthopedic hand surgeon but sat in the waiting room for 10 hours. They talked to triage staff multiple times but were unable to get back to see a provider in a timely fashion so they decided to leave and came here to be evaluated. Other than the finger pain he denies any other symptoms right now. [facility] Medical History Diverticulitis Irregular heart beat Mild intermittent asthma Home Medications cephalexin 500 mg capsule 500 mg PO Q6 #40 CAPSULES 11/21/22 [Rx Last Taken Unknown] oxycodone-acetaminophen 5 mg-325 mg tablet 1 tab PO Q4H PRN Pain 3 days #15 TABLETS 11/21/22 [Rx Last Taken Unknown] Allergy/AdvReac Type Severity Reaction Status Date / Time guaifenesin [From Robitussin] Allergy Hives Verified 11/21/22 03:54 Surgical History History of ankle surgery Social History Smoking Status: Current every day smoker tobacco type: cigarettes ROS ROS ED Constitutional Constitutional ED: Denies chills or fever(s) Musculoskeletal Musculoskeletal: Reports extremity pain; Denies neck pain Integumentary Reports wounds; Denies Abrasions or rash Neurologic Neurologic: Denies paresthesias or weakness EXAM Physical Exam Const Vital Signs: 11/21/22 03:50 Temperature 96.6 F L Temperature Source Temporal Pulse Rate 110 H Respiratory Rate 18 Blood Pressure 168/90 H Blood Pressure Mean 116 Pulse Ox 98 Oxygen Delivery Method Room Air Positive well nourished and well developed General Appearance ED: well developed and NAD Neck full ROM and supple Back/Spine normal ROM and normal to inspection Extremity Extremity Narrative: Macerated stellate wound with bone exposed dorsal left index finger middle and distal phalanx ease, mostly the distal. There is damage to the nail, it is broken from the base diagonally to the ulnar aspect, with nailbed injury but there is tissue loss there not a simple laceration. He is unable to extend at the DIPJ consistent with extensor disruption. FDS, FDP intact. No deformities except for the swan-neck distally. There is an area of brisk venous oozing no pulsatile bleeding. No other discharge or signs of infection. No prior repair done. Neuro oriented x3, no focal motor deficits and no sensory deficits noted Sensorium / Orientation: alert Psych mental status grossly normal and thought process normal Skin Skin Narrative: Macerated wound total approximately 4 cm, dorsal left index finger distal half of it. See above. No foreign material or obvious gross debris. This is a mixture of deep soft tissue injury down to the bone, and superficial epidermal soft tissue injuries. It is stellate. Rashes: no rashes MDM MDM MDM Narrative Medical decision making narrative: We started with a digital block to relieve the patient's discomfort, after injecting a very small amount maybe 1 cc of plain 1% lidocaine locally in addition to the digital block, he was pain-free. I applied a turnicot to the finger for about 35 minutes, while the repair was performed see the the procedure note below. A couple of the pieces of tissue were twisted but still attached and appeared to be perfused, but I was able to lay the pieces down where they appeared to belong, and tack everything together to completely cover the exposed bone and soft tissues of the inside of the finger. I did remove the ulnar aspect of the nail that was damaged, and loosened from the root, and not likely to remain long-term. I discussed that with the patient. I left the other part of the nail for now, there is no nailbed laceration to repair since the part of the nailbed beneath this part of the nail is completely macerated. I tried to reapproximate the cuticle as best that I could, as the ulnar aspect was disrupted. I reviewed three-view x-ray series outpatient x-rays that he brought with him from prior hospital, there is no report but I do not see any traumatic bony involvement, just a swan neck deformity. I splinted him in extension, and he is dressed in a nonstick bacitracin laced dressing beneath this. He is neurovascular intact distally within the limits of exam but his digital block was done with Sensorcaine so we will take some time to wear off. I discussed with Dr. Chin with hand surgery at [facility], he agrees this is reasonable and have the patient follow-up as an outpatient on Thursday after the weekend, and agrees with Ancef here, cephalexin and pain medication for home, and close outpatient follow-up. Patient is comfortable with this overall plan. History & Record Review Additional record(s) reviewed:: Other (Outpatient x-rays and paperwork from prior ED visit) Management Discussion w/another healthcare provider: Insecticide Sprayer Procedures Lacerations L index finger: Length: 5 cm Depth: Sub Q Shape: Stellate Prep: Sterile Conditions and Chlorhexadine Laceration repair: Digital block, Irrigated (soaked in sterile saline/chlorhexidine) and Skin sutures Number of Sutures/Stanton: 6 Suture Information: Ethilon, Simple, 4-0 (#1) and 5-0 (#5) Comment: ulnar piece of nail removed from nail bed, side of cuticle tacked down in near-anatomic position Upper Extremity Splints Upper Extremity Splint: Alumifoam Splint Fabrication: Fabricated Location: Left (Index. Neurovascular intact distally within limits of exam given digital block.) Other Procedures Procedure(s): Digital Block: total 10cc of 50:50 mix of bupivacaine 0.5% and plain lidocaine 1%, dorsal approach at level of MCPJ of L index finger after prep w/ isopropanol, resulting in good anesthesia. Discharge Plan Triage Chief Complaint: Laceration ED Provider: Peter Rico Dx/Rx/DC Orders Clinical Impression: Laceration of left index finger with tendon involvement, Extensor tendon laceration, finger, open wound, Laceration of left index finger with damage to nail Instructions: ED Laceration, Hand: All Closures, ED Tendon Laceration Prescriptions: New oxycodone-acetaminophen [oxycodone-acetaminophen] 5-325 mg tablet 1 tab PO Q4H PRN (Reason: Pain) 3 Days Qty: 15 0RF cephalexin [cephalexin] 500 mg capsule 500 mg PO Q6 Qty: 40 0RF Primary Care Provider: Care Physician,No Primary Referrals: [facility] [Outside] - 11/24/22 Hosea Virgen MD [Non-Staff] - 07/24/23 (call for appt time, at [facility]) Care Physician,No Primary [Primary Care Provider] - Disposition Disposition: Home, Self Care
[2022-11-21] MEDS: Cefazolin 1 GM/5 ML Vial IM (05:47)
[2022-11-21 06:07] VITALS: PULSE 79; RESP 18; O2SAT 97
== END 2022-11-21 06:08 | disposition home or self-care (01) ==
PROVIDERS: Emergency Provider Emergency Medicine; Visit Provider Emergency Medicine
DX: S61.311A Laceration without foreign body of left index finger with damage to nail, initial encounter (principal); S66.321A Laceration of extensor muscle, fascia and tendon of left index finger at wrist and hand level, initial encounter; F17.210 Nicotine dependence, cigarettes, uncomplicated; X58.XXXA Exposure to other specified factors, initial encounter
CPT/HCPCS: 13132; 29130; 96372; 99284

== ENCOUNTER 2023-12-04 09:42 | Emergency (ER) | payer SELFPAY ==
[2023-12-04 09:43] VITALS: BP 147/89; PULSE 98; RESP 16; TEMP 36.3; O2SAT 100; BMI 31.2
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
[2023-12-04] MEDS: Smz/Tmp Ds Tablet 1 TABLET PO (11:10)
== END 2023-12-04 11:13 | disposition home or self-care (01) ==
PROVIDERS: Emergency Provider Emergency Medicine; Visit Provider Emergency Medicine
DX: L03.90 Cellulitis, unspecified (principal); J45.20 Mild intermittent asthma, uncomplicated; F17.210 Nicotine dependence, cigarettes, uncomplicated
CPT/HCPCS: 99282

== ENCOUNTER 2024-06-03 05:51 | Emergency (ER) | payer MEDICAID, SELFPAY ==
[2024-06-03 05:52] VITALS: BP 154/111; PULSE 90; RESP 17; TEMP 36.7; O2SAT 98; BMI 32.6
[2024-06-03] MEDS: Penicillin Vk 250 MG Tablet 500 MG PO (06:24)
[2024-06-03] MEDS: Ibuprofen 600 MG Tablet PO (06:24)
--- NOTE | 2024-06-03 06:24 | ED.VIS.DENTA ---
HPI History of Present Illness Chief Complaint: Dental Informant: patient Narrative Narrative: Worsening right lower dental pain last couple days. Hot and cold sensitivities. Took his last leftover 800 mg ibuprofen yesterday. Has known poor dentition, has seen the dentist last year had plans for extraction. Appointment now not until July of this year. No allergies to any antibiotics. No fevers. PFSH PFSH Medical History Mild intermittent asthma Diverticulitis Irregular heart beat Home Medications ?Medication ?Instructions ?Recorded ?Last Taken ?Type ibuprofen 600 mg tablet 600 mg PO Q6H PRN PRN pain #20 06/03/24 Unknown Rx TABLETS penicillin V potassium 500 mg 500 mg PO 4X/DAY #40 tabs 06/03/24 Unknown Rx tablet Allergy/AdvReac Type Severity Reaction Status Date / Time guaifenesin (From Robitussin) Allergy Hives Verified 06/03/24 05:52 hydrocodone AdvReac Rash Verified 06/03/24 05:52 Surgical History History of ankle surgery Social History Smoking Status: Current every day smoker tobacco type: cigarettes ROS ROS ED Constitutional Constitutional ED: Denies chills, fever(s) or sweats ENT ENT ED: Reports other Details: Dental pain with hot and cold sensitivities ; Denies sore throat Cardiovascular Cardiovascular: Denies chest pain Respiratory/Chest Respiratory/Chest: Denies cough Gastrointestinal Gastrointestinal: Denies abdominal pain, diarrhea, nausea or vomiting Musculoskeletal Musculoskeletal: Denies neck pain Integumentary Denies rash or wounds Neurologic Neurologic: Denies headache(s), paresthesias or weakness EXAM Physical Exam Const Vital Signs: 06/03/24 05:52 Temperature 98.1 F Temperature Source Oral Pulse Rate 90 Respiratory Rate 17 Blood Pressure 154/111 H Blood Pressure Mean 125 Pulse Ox 98 Oxygen Delivery Method Room Air Positive well nourished and well developed General Appearance ED: well developed and NAD HEENT Reports moist mucous membranes HEENT Narrative: He has poor dentition with focal decay tooth #29 down to the gumline. No sublingual edema. No fluctuance palpated at the gums. No trismus. normocephalic and atraumatic Eyes General Eye ED: Yes normal appearance of both eyes Neck full ROM Chest Wall Chest: Negative for tenderness Resp normal respiratory effort and normal air movement Effort and Inspection: symmetric chest movement; Negative for respiratory distress Cardio regular rate, regular rhythm and no murmurs Peripheral Pulses: pulses 2+ throughout GI normal to inspection, nondistended, normoactive bowel sounds and non-tender Palpation: Negative for guarding or rebound tenderness present Extremity normal to inspection General Extremety ED: Negative for edema or tenderness General Extremity: Negative for edema Neuro oriented x3 and no sensory deficits noted Sensorium / Orientation: awake and alert Skin no rashes or lesions noted and no wounds MDM MDM MDM Narrative Medical decision making narrative: Interventions / MDM: Differential diagnosis: Dental carry, dentalgia Diagnosis considered but do not suspect: No clinical Darnell angina My EKG interpretation: N/A Imaging independently reviewed and interpreted by myself: N/A External documents reviewed: N/A Test considered but not ordered:N/A ED course: Vital stable afebrile nontoxic. Dental caries with dentalgia. Patient started on penicillin and ibuprofen 600 mg. Prescription sent to his pharmacy. Follow-up with dental list given along with attempting to see his dentist sooner. All questions were answered. Re-evaluation: stable Disposition discussed with patient/family/significant other: Patient Case discussed with consulting clinician: N/A This note was generated with [employer] dictation software. It may contain incorrect words, spelling, and punctuation that were not noted in checking the note before signing. Discharge Plan Triage Chief Complaint: Dental ED Provider: Jose Alberto Guillen Dx/Rx/DC Orders Clinical Impression: Dental caries, Dentalgia Instructions: ED Dental Pain, ED Dental Cavity Prescriptions: New penicillin V potassium 500 mg tablet 500 mg PO 4X/DAY Qty: 40 0RF ibuprofen 600 mg tablet 600 mg PO Q6H PRN PRN (Reason: pain) Qty: 20 0RF Primary Care Provider: Care Physician,No Primary Referrals: Care Physician,No Primary [Primary Care Provider] - Activity Restrictions/Additional Instructions: Take and finish antibiotic as prescribed. Ibuprofen as prescribed may add additional Tylenol. Follow-up with her dentist or try to follow-up with dental list for definitive treatment. Print Language: Bahraini Disposition Disposition: Home, Self Care
== END 2024-06-03 06:29 | disposition home or self-care (01) ==
LOC: ED 06:29
PROVIDERS: Emergency Provider Emergency Medicine; Visit Provider Emergency Medicine
DX: K02.9 Dental caries, unspecified (principal); K08.89 Other specified disorders of teeth and supporting structures; F17.210 Nicotine dependence, cigarettes, uncomplicated
CPT/HCPCS: 99283